=== PATIENT | female | born 1965 | race American Indian/Alaskan Native ===

== ENCOUNTER 2019-06-28 10:00 | Emergency (ER) | payer SELFPAY ==
[2019-06-28 10:52] VITALS: BP 209/94
--- NOTE | 2019-06-28 10:56 | Emergency Department Report ---
Chief Complaint: High BP Stated Complaint: HBP/HEADACHES Time Seen by Provider: 06/28/19 10:53 - HPI History of Present Illness: a/c htn went to PCP today and since she lost [facility] card they would not see her [facility] then sent her here she need rx for bp meds lisinopril and hctz pmh asthma htn chf 2013 no cig/etoh/drugs psh hernia 2014 lmp 2014 - ROS Review of Systems: no cp no sob no gomez at this time no weakness bp mildly elevated - Exam Vital Signs: Vital Signs 06/28/19 10:15 Temperature 98.1 F Pulse Rate 55 L Respiratory 20 Rate Blood Pressure 209/94 O2 Sat by Pulse 100 Oximetry Physical Exam: no neuro def perrl no pronator drift ambulatory no weakness s1s2 lungs cta MSE screening note: Focused history and physical exam performed. Due to findings the following was ordered: NO LIFE THREAT SENT TO DR Yamila GUADARRAMA AT [facility] Patient discussed with doctor:: MARIELLE [facility] Disposition for MSE Condition: Stable
== END 2019-06-28 11:00 | disposition left against medical advice (07) ==
LOC: ED 10:00
DX: I11.0 Hypertensive heart disease with heart failure (principal); I50.9 Heart failure, unspecified; J45.909 Unspecified asthma, uncomplicated
CPT/HCPCS: 99281